=== PATIENT | female | born 1985 | race Caucasian/White ===

== ENCOUNTER 2020-01-31 17:17 | Emergency (ER) | payer OTHER ==
[~2020-01-31] VITALS: Ht 162.6 cm; Wt 104.5 kg
[2020-01-31 17:27] VITALS: Ht 162.6 cm; Wt 104.5 kg
[2020-01-31] MEDS ORDERED: CYMBALTA20 MG (17:28)
[2020-01-31 18:02] LABS: HCG URINE NEGATIVE (NEGATIVE)
[2020-01-31] MEDS ORDERED: VOLTAREN75 MG PO (18:48)
[2020-01-31 19:11] VITALS: BP 121/62
== END 2020-01-31 19:33 | disposition home or self-care (01) ==
LOC: D.ER 17:17
PROVIDERS: Family Medicine
DX: S06.0X9A Concussion with loss of consciousness of unspecified duration, initial encounter (principal); Y04.8XXA Assault by other bodily force, initial encounter; Y93.9 Activity, unspecified; Y92.9 Unspecified place or not applicable; R51 Headache